=== PATIENT | female | born 1975 | race Caucasian/White ===

== ENCOUNTER 2017-11-06 12:27 | Inpatient (IN) | payer OTHER ==
[~2017-11-06] VITALS: Ht 157.5 cm; Wt 93.0 kg
[2017-11-06 13:12] LABS: ABSOLUTE BASOPHIL COUNT 0.1 /CUMM (0.0-0.2); ABSOLUTE EOSINOPHIL COUNT 0.2 /CUMM (0.0-0.7); ABSOLUTE LYMPH COUNT 3.3 /CUMM (1.2-3.4); ABSOLUTE MONOCYTE COUNT 0.8 /CUMM (0.10-0.60); BASOPHIL % 0.7 % (0.0-2.0); EOSINOPHIL % 1.2 % (0-5); GRANULOCYTE % 78.1 % (42.2-75.2); HEMATOCRIT 39.6 % (37-47); MEAN CORPUSCULAR HGB 28.9 PG (27.0-31.0); MEAN CORPUSCULAR HGB CONC 33.7 G/DL (33.0-37.0); MEAN CORPUSCULAR VOLUME 85.8 FL (81.0-99.0); PLATELET COUNT 468 /CUMM (130-400); RBC DISTRIBUTION WIDTH 13.2 % (11.5-14.5); RED BLOOD CELL CT 4.62 /CUMM (4.20-5.40); WHITE BLOOD CELL COUNT 20.5 /CUMM (4.8-10.8)
--- NOTE | 2017-11-06 13:48 | ED GI/GU/ABDOMINAL COMPLAINT ---
History of Present Illness General Chief Complaint: Female Urogenital Problems Stated Complaint: ABD PAIN ? UTI Source: patient Exam Limitations: no limitations Vital Signs & Intake/Output Vital Signs & Intake/Output Vital Signs Date Time Temp Pulse Resp B/P B/P Pulse O2 O2 Flow FiO2 Mean Ox Delivery Rate 11/06 1703 Room Air 11/06 1234 98.0 115 18 135/93 99 Room Air Allergies Coded Allergies: Penicillins (Severe, HIVES 11/06/17) Sulfa (Sulfonamide Antibiotics) (Severe, HIVES 11/06/17) codeine (Severe, DIZZINESS 11/06/17) red dye (Mild, ITCHING 11/06/17) Reconcile Medications No Known Home Medications Triage Note: PT TO ED FOR BILATERAL FLANK PAIN RADIATING INTO HER LOWER ABD SINCE MONDAY, WAS SEEN AT [facility] WHO PRESCRIBED CIPRO AND PYRIDIUM, PT REPORTING SHE HAS BEEN TAKING BOTH WITH MINIMAL RELIEF. Triage Nurses Notes Reviewed? yes ? N Is pt currently ? No Onset: Gradual Duration: getting worse Timing: recent history Quality/Severity: moderate Severity Numbers: 5 Radiation: no radiation HPI: Patient is a 41-year-old female with a unremarkable past medical history presents emergency room and which 8 days ago patient was seen and evaluated at a urgent care facility and was diagnosed with positional vertigo patient was administered meclizine however 3 days ago last Monday patient began having abdominal pain and left-sided back pain and upon urination patient states that she had worsening abdominal pain where she was prescribed ciprofloxacin and Pyridium were patient states that her symptoms of pain feel no better. Patient's last bowel movement was 2 days ago patient is decreased appetite however can't tolerate Patient does state that the onset of her pain on Monday she had 3 episodes a day of nonbloody nonbilious emesis. Denies any fevers chills chest pain shortness of breath presently bleeding or discharge or current dysuria hematuria (Claudio Larson) Past History Travel History Traveled to [place] past 21 day No Medical History Any Pertinent Medical History? 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 No (Claudio Larson) Review of Systems Review of Systems Constitutional: Reports: no symptoms. EENTM: Reports: no symptoms. Respiratory: Reports: no symptoms. Cardiovascular: Reports: no symptoms. GI: Reports: see HPI. Genitourinary: Reports: see HPI. Musculoskeletal: Reports: no symptoms. Skin: Reports: no symptoms. Neurological/Psychological: Reports: no symptoms. Hematologic/Endocrine: Reports: no symptoms. Immunologic/Allergic: Reports: no symptoms. All Other Systems: Reviewed and Negative (Claudio Larson) Physical Exam Physical Exam General Appearance: no apparent distress, alert, obese Head: atraumatic Eyes: Bilateral: normal appearance. Ears, Nose, Throat, Mouth: moist mucous membrane Neck: normal inspection Respiratory: normal breath sounds Cardiovascular: tachycardia Peripheral Pulses: 2+ radial (R) Gastrointestinal: normal bowel sounds, soft, tenderness Extremities: normal range of motion Skin: intact, normal color, warm/dry Core Measures ACS in differential dx? No Sepsis Present: No Sepsis Focused Exam Completed? No (Claudio Larson) Progress Differential Diagnosis: AAA, AMI, appendicitis, biliary colic, bowel obstruction , colon cancer, cholecystitis, diverticulitis, ectopic , endometritis, esophageal varices, gastritis, hepatitis, hernia, hemorrhoids, ischemic bowel, inflamm bowel dis, intrauterine , kidney stone, Promise-Apryl tear, ovarian cyst, ovarian torsion, pancreatitis, PID/cervicitis, peptic ulcer, PUD/ GERD, perforated viscous, SBO, threatened AB, UTI/pyelo Plan of Care: Orders Procedure Date/time Status Nothing by Mouth 11/07 B Active CBC WITHOUT DIFFERENTIAL 11/07 0600 Active BASIC ELECTROLYTES PLUS BUN&CR 11/07 0600 Active LACTIC ACID 11/06 1820 Active Pathway - chart 11/06 1707 Active Code Status 11/06 1707 Active Patient Data 11/06 1635 Active EKG 11/06 1523 Active Add-on Test (ER Only) 11/06 1520 Active BLOOD CULTURE 11/06 1520 Active PARTIAL THROMBOPLASTIN TIME 11/06 1520 Complete PROTHROMBIN TIME 11/06 1520 Complete LACTIC ACID 11/06 1520 Complete TYPE & SCREEN (NOT X-MATCH) 11/06 1520 Active Add-on Test (ER Only) 11/06 1348 Active DIRECT BILIRUBIN 11/06 1301 Complete CULTURE,URINE 11/06 1252 Active URINE 11/06 1240 Complete URINALYSIS 11/06 1240 Complete COMPREHENSIVE METABOLIC PANEL 11/06 1240 Complete CBC WITHOUT DIFFERENTIAL 11/[address] in observation 11/06 UNK Active VTE Mechanical Prophylaxis 11/06 UNK Active Vital Signs 11/06 UNK Active Intake & Output 11/06 UNK Active Activity/Ambulation 11/06 UNK Active Current Medications Sig/Rafal Start time Last Medication Dose Stop Time Status Admin Ceftriaxone Sodium 1,000 MG DAILY 11/07 1000 UNVr (Rocephin) Metronidazole 500 MG IQ8 11/07 0000 UNVr (Flagyl) N/A 1 UNIT (No Carrier) Heparin Sodium 5,000 UNIT Q8 11/06 2200 UNVr (Porcine) Acetaminophen 1,000 MG Q6P PRN 11/06 1715 UNVr (Ofirmev) N/A 1 UNIT (No Carrier) Dextrose/Lactated 1,000 ML Q8H 11/06 1715 UNVr Ringer's (D5W in Lactated Ringers) Morphine Sulfate 2 MG Q3P PRN 11/06 1715 UNVr (Morphine) Morphine Sulfate 4 MG Q3P PRN 11/06 1715 UNVr (Morphine) Ondansetron HCl 4 MG Q6-PRN PRN 11/06 171 UNVr (Zofran) Laboratory Tests 11/06/17 1634: Lactic Acid 1.3, PT 14.0 H, INR 1.34 H, APTT 41 H 11/06/17 1301: Anion Gap 18 H, Estimated GFR > 60, BUN/Creatinine Ratio 20.0, Glucose 129 H, Calcium 9.3, Total Bilirubin 0.5, Direct Bilirubin 0.3, AST 37 H, ALT 47, Alkaline Phosphatase 107, Total Protein 8.6 H, Albumin 4.7, Globulin 3.9, Albumin/Globulin Ratio 1.2, CBC w Diff MAN DIFF ORDERED, RBC 4.62, MCV 85.8, MCH 28.9, RDW 13.2, MPV 7.0 L, Gran % 78.1 H, Lymphocytes % 15.9 L, Monocytes % 4.1, Eosinophils % 1.2, Basophils % 0.7, Absolute Granulocytes 16.0 H, Absolute Lymphocytes 3.3, Absolute Monocytes 0.8 H, Absolute Eosinophils 0.2, Absolute Basophils 0.1, Platelet Estimate VERIFIED BY SMEAR, Normocytic RBCs VERIFIED, Normochromic RBCs VERIFIED, PUBS MCHC 33.7 11/06/17 1252: Urine Color ORANG H, Urine Clarity CLEAR, Urine pH 5.5, Ur Specific [place] >= 1.030, Urine Protein 30 H, Urine Ketones TRACE H, Urine Nitrite POS H, Urine Bilirubin NEG@ICTO, Urine Urobilinogen 2.0 H, Ur Leukocyte Esterase TRACE H, Ur Microscopic SEDIMENT EXAMINED, Urine WBC 3-5 H, Ur Epithelial Cells MANY H, Urine Bacteria FEW H, Urine Mucus RARE, Urine Hemoglobin NEG, Urine Glucose NEG , Urine Test NEGATIVE Microbiology 11/06 1634 BLOOD: Blood Culture - RECD 11/06 1615 BLOOD: Blood Culture - RECD 11/06 1252 URINE ROUT: Urine Culture - RECD Patient had initial examination was resting currently at bedside patient was offered pain medication and requested ibuprofen IV Toradol was administered. [place] doesn't indicated leukocytosis at 20,000 CT scan was resulted in which I discussed with radiologist Dr. LANGSTON or of concerns of perforated sigmoid diverticulitis with free air discussed results with patient IV morphine was administered surgery was paged 1522 Discussed patient with Sonny Mccann MD advised patient to be placed under his service discussed surgical PA admission Diagnostic Imaging: Viewed by Me: CT Scan. Discussed w/RAD: CT Scan. Radiology Impression: acute abnormality Initial ED EK BPM, SINUS TACHYCARDIA Comments: PATIENT: BORA DE LA PAZ PRESENT AGE: 41 PATIENT ACCOUNT NO: [id number] : 74 LOCATION: [facility] ORDERING PHYSICIAN: Claudio JOHNSON SERVICE DATE: 11/06/17 EXAM TYPE: CAT - CT ABD & PELVIS W IV CONTRAST EXAMINATION: CT ABDOMEN AND PELVIS WITH CONTRAST CLINICAL INFORMATION: 41-year-old female with right lower quadrant and left costovertebral angle pain. COMPARISON: None TECHNIQUE: Multidetector volumetric imaging was performed of the abdomen and pelvis following IV administration of 95 mL of Optiray 320 intravenous contrast. Sagittal and coronal reformatted images were obtained on the technologist's workstation. 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 Obese body habitus. LUNG BASES: Unremarkable. LIVER, GALLBLADDER, AND BILIARY TREE: There is hepatomegaly and diffuse hepatic steatosis with a region of relative sparing around the gallbladder fossa. No evidence of focal liver lesion. Gallbladder is physiologically distended and without radiopaque calculi or wall edema. No intrahepatic or extrahepatic bile duct dilatation. PANCREAS: Unremarkable. SPLEEN: The normal spleen measures up to 12.7 cm maximum dimension. No focal splenic lesion. ADRENAL GLANDS: Normal. KIDNEYS AND URETERS: Kidneys are normal in size and enhance symmetrically. No renal mass, nephrolithiasis, hydroureteronephrosis or perinephric edema. BLADDER: Unremarkable. GASTROINTESTINAL TRACT: Loops of bowel are normal in caliber. Appendix is normal. There are diverticula of the sigmoid colon. There are two small bubbles of gas in the sigmoid mesocolon that appear to be extraluminal and likely reflect microperforation of sigmoid diverticulitis. There is circumferential wall thickening of the noted sigmoid colon. No rim-enhancing collection in this region. There is reticulation/inflammation of the fat around the sigmoid colon. ABDOMINAL WALL: Minimal protrusion of fat into the umbilicus. LYMPH NODES: No pathologic sized lymph nodes in the abdomen or pelvis. VASCULAR: Unremarkable. PELVIC VISCERA: Intrauterine contraceptive device is in its expected position. The anteflexed uterus is normal in size. No evidence of uterine or adnexal mass. A trace amount of free fluid is present within the pelvic cul-de-sac. OSSEOUS STRUCTURES: L5-S1 degenerative disc space narrowing and osteophyte formation. No suspicious osseous lesions. IMPRESSION: 1. Findings are consistent with a contained perforation of sigmoid colon diverticulitis without abscess. 2. Obesity, diffuse hepatic steatosis and hepatosplenomegaly. The acute test result was discussed with Claudio Santos of the ER at 3:20 pm on 11/06/2017 and it was ascertained that the content and the importance of the findings was understood at the time of the direct communication. (Tom JOHNSON,Claudio) Radiology Impression: acute abnormality (Mihir BENDER,Kadeem) Departure Departure Disposition: STILL A PATIENT Condition: Guarded Referrals: Patient Has No Primary Care Dr (PCP/Family) Departure Forms: Customer Survey General Discharge Information Prescriptions: Current Visit Scripts No Known Home Medications Admission Note Spoke With: Siobhan BENDER,Sonny Aviles. Documentation of Exam: Documentation of any treatments & extenuating circumstances including Concerns Regarding Discharge (functional status, medication knowledge or non-compliance, living conditions, etc.) that warrant an admission rather than observation: Patient requires IV pain management, IV antibiotics possible surgical intervention and surgery consultation, outpatient treatment due to critical findings of diverticulitis with perforation or free air would be medically harmful (Claudio Larson) Departure Clinical Impression Primary Impression: Diverticulitis of intestine with perforation 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 I have also reviewed all the pertinent lab results and diagnostic results. I agree with the findings and the plan of care as documented in the PA's/LICENSED RETAIL SUPERVISOR's documentation. Flank pain with leukocytosis diverticulitis with micro perforation. Sx to hospitalize. [] I have reviewed the ED Record and agree with the PA's/LICENSED RETAIL SUPERVISOR's documentation. [] Additions or exceptions (if any) to the PAs/LICENSED RETAIL SUPERVISOR's note and plan are summarized below: [] (Mihir BENDER,Kadeem) Critical Care Note Critical Care Note Critical Care Time: 30-74 min (Claudio Larson)
--- NOTE | 2017-11-06 15:27 | CT SCAN REPORT ---
EXAMINATION: CT ABDOMEN AND PELVIS WITH CONTRAST CLINICAL INFORMATION: 41-year-old female with right lower quadrant and left costovertebral angle pain. COMPARISON: None TECHNIQUE: Multidetector volumetric imaging was performed of the abdomen and pelvis following IV administration of 95 mL of Optiray 320 intravenous contrast. Sagittal and coronal reformatted images were obtained on the technologist's workstation. 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 Obese body habitus. LUNG BASES: Unremarkable. LIVER, GALLBLADDER, AND BILIARY TREE: There is hepatomegaly and diffuse hepatic steatosis with a region of relative sparing around the gallbladder fossa. No evidence of focal liver lesion. Gallbladder is physiologically distended and without radiopaque calculi or wall edema. No intrahepatic or extrahepatic bile duct dilatation. PANCREAS: Unremarkable. SPLEEN: The normal spleen measures up to 12.7 cm maximum dimension. No focal splenic lesion. ADRENAL GLANDS: Normal. KIDNEYS AND URETERS: Kidneys are normal in size and enhance symmetrically. No renal mass, nephrolithiasis, hydroureteronephrosis or perinephric edema. BLADDER: Unremarkable. GASTROINTESTINAL TRACT: Loops of bowel are normal in caliber. Appendix is normal. There are diverticula of the sigmoid colon. There are two small bubbles of gas in the sigmoid mesocolon that appear to be extraluminal and likely reflect microperforation of sigmoid diverticulitis. There is circumferential wall thickening of the noted sigmoid colon. No rim-enhancing collection in this region. There is reticulation/inflammation of the fat around the sigmoid colon. ABDOMINAL WALL: Minimal protrusion of fat into the umbilicus. LYMPH NODES: No pathologic sized lymph nodes in the abdomen or pelvis. VASCULAR: Unremarkable. PELVIC VISCERA: Intrauterine contraceptive device is in its expected position. The anteflexed uterus is normal in size. No evidence of uterine or adnexal mass. A trace amount of free fluid is present within the pelvic cul-de-sac. OSSEOUS STRUCTURES: L5-S1 degenerative disc space narrowing and osteophyte formation. No suspicious osseous lesions. IMPRESSION: 1. Findings are consistent with a contained perforation of sigmoid colon diverticulitis without abscess. 2. Obesity, diffuse hepatic steatosis and hepatosplenomegaly. The acute test result was discussed with Claudio Santos of the ER at 3:20 pm on 11/06/2017 and it was ascertained that the content and the importance of the findings was understood at the time of the direct communication.
--- NOTE | 2017-11-06 16:34 | Admission Core Measures ---
Acute Coronary Syndrome (CM) ACS Core Measures Acute Coronary Syndrome Diagnosis No Congestive Heart Failure (NEW) CHF Core Measures Congestive Heart Failure Diagnosis No Cerebrovascular Accident (NEW) CVA Core Measures CVA/TIA Diagnosis No Venous Thromboembolism VTE Core Angelica (View Protocol) VTE Risk Factors Acute Medical Illness No Mechanical VTE Prophylaxis d/t N/A MechProphylax Ordered No VTE Pharm Prophylaxis d/t NA PharmProphylax ordered Problem List As ranked by this Provider includes Assessment & Plan 1. Diverticulitis of intestine with perforation
[2017-11-06 17:04] LABS: PTT 41 SEC (25-37)
--- NOTE | 2017-11-06 18:44 | History & Physical Pre-Op ---
General Information and HPI History of Present Illness: CC: abdominal pain HPI: 41-year-old nondiabetic nonsmoker no medications started having some lower abdominal pain 3 days ago radiating to her back bilaterally she went to a walk- in who treated her for a urinary tract infection but the pain persisted more in the left lower quadrant so she came here. This was not preceded by any unusual meal or straining. Denies fevers she had some vomiting initially, she is hungry , she normally doesn't move her bowels every day this episode was not preceded by any changes in her bowel movements but in retrospect, for years, she gets cramps with certain foods like nuts and seeds and popcorn, but this was the worst episode, and her grandmother gets episodes of diverticulitis. Otherwise no changes bowel habits, weight or appetite. I've reviewed the [facility]. No history of GERD, PUD, bleeding problems, heart disease or issues with anesthesia. 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 Surgical History Pertinent Surgical History: non-contributory Past Family/Social History Psychosocial History ETOH Use: occasional use Illicit Drug Use: denies illicit drug use Review of Systems Review of Systems: Constitutional: No fever, sweats or weight loss ENMT: No sore throat Cardiovascular: No chest pain, palpitations or leg swelling Respiratory: No shortness of breath, cough, or sputum or dyspnea on exertion GI: No GERD or bleeding per rectum : No dysuria or hematuria Musculoskeletal: No new muscle weakness, bone or joint pain Skin / Breast: No jaundice, rashes or itching Psychiatric: No history of drug or alcohol abuse no depression or anxiety Hematologic / lymphatic system: No problems with excessive bleeding, bruising, or blood clots Exam & Diagnostic Data Last 24 Hrs of Vital Signs/I&O I reviewed Vital Signs Date Time Temp Pulse Resp B/P B/P Pulse O2 O2 Flow FiO2 Mean Ox Delivery Rate 11/06 1703 Room Air 11/06 1234 98.0 115 18 135/93 99 Room Air I reviewed Intake & Output 11/06 1600 11/06 0800 11/06 0000 Intake Total Output Total Balance Patient 205 lb Weight Weight Reported by Patient Measurement Method Physical Exam: Constitutional: pleasant, no acute distress, conversant Eyes: sclera anicteric ENMT: ears and nose atraumatic, moist mucous membranes, good dentition, no lip lesions Neck: Supple, trachea is midline, no cervical or supraclavicular adenopathy and no palpable thyromegaly Cardiovascular: S1, S2, no murmurs, no peripheral edema Respiratory: clear to auscultation with normal respiratory effort and no intercostal retractions GI: abdomen soft, focal left lower quadrant tenderness no rebound, nondistended, no palpable hepatosplenomegaly Extremities / lymphatics: symmetrically warm, free range of motion no peripheral edema, no cervical, supraclavicular, axillary, or inguinal adenopathy Musculoskeletal: Did not evaluate gait and station, no digital cyanosis, good muscle strength and tone no atrophy, motor grossly 5 out of 5 throughout Skin: no jaundice, no rashes warm, nondiaphoretic, no areas of erythema or induration Psychiatric: mood and affect are appropriate and alert and oriented to person place and time Last 24 Hrs of Labs/Ector: I reviewed Laboratory Tests 11/06/17 1634: Lactic Acid 1.3, PT 14.0 H, INR 1.34 H, APTT 41 H 11/06/17 1301: Anion Gap 18 H, Estimated GFR > 60, BUN/Creatinine Ratio 20.0, Glucose 129 H, Calcium 9.3, Total Bilirubin 0.5, Direct Bilirubin 0.3, AST 37 H, ALT 47, Alkaline Phosphatase 107, Total Protein 8.6 H, Albumin 4.7, Globulin 3.9, Albumin/Globulin Ratio 1.2, CBC w Diff MAN DIFF ORDERED, RBC 4.62, MCV 85.8, MCH 28.9, RDW 13.2, MPV 7.0 L, Gran % 78.1 H, Lymphocytes % 15.9 L, Monocytes % 4.1, Eosinophils % 1.2, Basophils % 0.7, Absolute Granulocytes 16.0 H, Absolute Lymphocytes 3.3, Absolute Monocytes 0.8 H, Absolute Eosinophils 0.2, Absolute Basophils 0.1, Platelet Estimate VERIFIED BY SMEAR, Normocytic RBCs VERIFIED, Normochromic RBCs VERIFIED, PUBS MCHC 33.7 11/06/17 1252: Urine Color ORANG H, Urine Clarity CLEAR, Urine pH 5.5, Ur Specific [place] >= 1.030, Urine Protein 30 H, Urine Ketones TRACE H, Urine Nitrite POS H, Urine Bilirubin NEG@ICTO, Urine Urobilinogen 2.0 H, Ur Leukocyte Esterase TRACE H, Ur Microscopic SEDIMENT EXAMINED, Urine WBC 3-5 H, Ur Epithelial Cells MANY H, Urine Bacteria FEW H, Urine Mucus RARE, Urine Hemoglobin NEG, Urine Glucose NEG , Urine Test NEGATIVE Microbiology 11/06 1634 BLOOD: Blood Culture - RECD 11/06 1615 BLOOD: Blood Culture - RECD 11/06 1252 URINE ROUT: Urine Culture - RECD I reviewed today's CT scan on PACS myself and shows an obviously thickened sigmoid colon with surrounding mesenteric inflammation and a few dots of gas, there is minimal free fluid Assessment/Plan Assessment/Plan: Sigmoid diverticulitis no free perforation I explained the spectrum of disease to her and why I feel she should be admitted to the surgical service because sometimes the tiny perforation contained by the mesentery acutely enlarges and causes peritonitis requiring emergency resection and colostomy to avoid life- threatening sepsis. Usually in someone with her degree of inflammation, the process starts to heal with a bowel rest and IV antibiotics alone and hopefully she will not develop a pericolic abscess which would require percutaneous drainage but in any case treatment is stepwise, once her pain improves we can try to advance her diet but then have to make sure that when she regains bowel function that it doesn't worsen with po or after a bowel movement so these conditions are usually not met within 2 days. As Ranked By This Provider Problem List: 1. Diverticulitis of intestine with perforation
[2017-11-06 21:05] VITALS: BP 118/70
[2017-11-07 06:18] VITALS: BP 118/60
[2017-11-07 09:02] LABS: ABSOLUTE BASOPHIL COUNT 0 /CUMM (0.0-0.2); ABSOLUTE LYMPH COUNT 2.6 /CUMM (1.2-3.4); ABSOLUTE MONOCYTE COUNT 0.6 /CUMM (0.10-0.60); MEAN CORPUSCULAR HGB 28.9 PG (27.0-31.0); MEAN PLATELET VOLUME 7.1 FL (7.4-10.4); PLATELET COUNT 356 /CUMM (130-400); RBC DISTRIBUTION WIDTH 13.1 % (11.5-14.5); RED BLOOD CELL CT 3.75 /CUMM (4.20-5.40)
[2017-11-07 09:35] LABS: ABSOLUTE EOSINOPHIL COUNT 0.4 /CUMM (0.0-0.7); ABSOLUTE GRANULOCYTE CT 8.7 /CUMM (1.4-6.5); BASOPHIL % 0.4 % (0.0-2.0); EOSINOPHIL % 2.9 % (0-5); GRANULOCYTE % 70.6 % (42.2-75.2); MEAN CORPUSCULAR HGB CONC 33.7 G/DL (33.0-37.0); MEAN CORPUSCULAR VOLUME 85.8 FL (81.0-99.0); WHITE BLOOD CELL COUNT 12.3 /CUMM (4.8-10.8)
[2017-11-07 09:51] LABS: HEMATOCRIT 32.1 % (37-47)
--- NOTE | 2017-11-07 11:06 | PN- General Surgery ---
Subjective Subjective: Patient c/o left lower quadrant pain this morning, which has improved compared to yesterday. She also reports nausea and dysuria. She has only ambulated out of bed to void. She reports passing flatus, denies any BMs. She offers no other complaints. Objective Vital Signs and I&Os Vital Signs Date Time Temp Pulse Resp B/P B/P Pulse O2 O2 Flow FiO2 Mean Ox Delivery Rate 11/07 617 97.7 69 18 118/60 95 Room Air 11/06 2105 99.3 114 20 118/70 94 Room Air 11/06 2009 99.4 105 19 118/60 95 Room Air 11/06 1703 Room Air 11/06 1234 98.0 115 18 135/93 99 Room Air Intake & Output 11/07 1600 11/07 0800 11/07 0000 11/06 1600 11/06 0800 11/06 0000 Intake Total 970 365 Output Total 100 Balance -100 970 365 Intake, IV 850 125 Intake, Oral 120 240 Output, Urine 100 Patient 205 lb 205 lb Weight Weight Reported by Patient Measurement Method Physical Exam: Gen - resting in a chair awake and alert in NAD accompained by her family Cardiac - S1S2 noted, RRR Lungs - CTAB Abd - Soft, obese, nondistended with absent bowel sounds, tender to light palpation in the LLQ with voluntary guarding, no rebound noted Ext - alps in place, no edema or calf tenderness B/L Current Medications: Current Medications Sig/Rafal Start time Last Medication Dose Route Stop Time Status Admin Acetaminophen 1,000 MG Q6P PRN 11/06 1715 AC 11/07 N/A 1 UNIT IV 0527 Ceftriaxone Sodium 1,000 MG DAILY 11/07 1000 AC 11/07 IV 0834 Ceftriaxone Sodium 0 .STK-MED ONE 11/06 1701 DC .ROUTE Ceftriaxone Sodium 1,000 MG ONCE ONE 11/06 1530 DC 11/06 IV 11/06 1531 1702 Dextrose/Lactated 1,000 ML Q8H 11/06 1715 AC 11/07 Ringer's IV 0527 Heparin Sodium 5,000 UNIT Q8 11/06 2200 AC 11/07 (Porcine) SC 0527 Ketorolac 0 .STK-MED ONE 11/06 1405 DC Tromethamine .ROUTE Ketorolac 30 MG ONCE ONE 11/06 1400 DC 11/06 Tromethamine IV 11/06 1401 1409 Metronidazole 500 MG IQ8 11/07 0000 AC 11/07 N/A 1 UNIT IV 0833 Metronidazole 500 MG ONCE ONE 11/06 1530 DC 11/06 N/A 1 UNIT IV 11/06 1629 1702 Morphine Sulfate 2 MG Q3P PRN 11/06 171 AC IV Morphine Sulfate 4 MG Q3P PRN 11/06 1715 AC IV Morphine Sulfate 0 .STK-MED ONE 11/06 1701 DC .ROUTE Morphine Sulfate 2 MG ONCE ONE 11/06 1530 DC 11/06 IV 11/06 1531 1702 Ondansetron HCl 4 MG Q6-PRN PRN 11/06 1715 AC 11/06 IV 2138 Sodium Chloride 1,000 ML BOLUS ONE 11/06 1400 DC 11/06 IV 11/06 1459 1409 Results Last 48 Hours of Labs: Laboratory Tests 11/07 11/06 11/06 0800 1827 1634 Chemistry Sodium (137 - 145 mmol/L) 141 Potassium (3.5 - 5.1 mmol/L) 4.0 Chloride (98 - 107 mmol/L) 103 Carbon Dioxide (22 - 30 mmol/L) 26 Anion Gap (5 - 16) 12 BUN (7 - 17 mg/dL) 12 Creatinine (0.5 - 1.0 mg/dL) 0.4 L Estimated GFR (>60 ml/min) > 60 BUN/Creatinine Ratio (7 - 25 %) 30.0 H Lactic Acid (0.7 - 2.1 mmol/L) 0.9 1.3 Coagulation PT (9.4 - 12.5 SEC) 14.0 H INR (0.90 - 1.19) 1.34 H APTT (25 - 37 SEC) 41 H Hematology CBC w Diff NO MAN DIFF REQ WBC (4.8 - 10.8 /CUMM) 12.3 H RBC (4.20 - 5.40 /CUMM) 3.75 L Hgb (12.0 - 16.0 G/DL) 10.8 L Hct (37 - 47 %) 32.1 L MCV (81.0 - 99.0 FL) 85.8 MCH (27.0 - 31.0 PG) 28.9 RDW (11.5 - 14.5 %) 13.1 Plt Count (130 - 400 /CUMM) 356 MPV (7.4 - 10.4 FL) 7.1 L Gran % (42.2 - 75.2 %) 70.6 Lymphocytes % (20.5 - 51.1 %) 21.4 Monocytes % (1.7 - 9.3 %) 4.7 Eosinophils % (0 - 5 %) 2.9 Basophils % (0.0 - 2.0 %) 0.4 Absolute Granulocytes (1.4 - 6.5 /CUMM) 8.7 H Absolute Lymphocytes (1.2 - 3.4 /CUMM) 2.6 Absolute Monocytes (0.10 - 0.60 /CUMM) 0.6 Absolute Eosinophils (0.0 - 0.7 /CUMM) 0.4 Absolute Basophils (0.0 - 0.2 /CUMM) 0 PUBS MCHC (33.0 - 37.0 G/DL) 33.7 11/06 1301 Chemistry Sodium (137 - 145 mmol/L) 145 Potassium (3.5 - 5.1 mmol/L) 4.0 Chloride (98 - 107 mmol/L) 102 Carbon Dioxide (22 - 30 mmol/L) 25 Anion Gap (5 - 16) 18 H BUN (7 - 17 mg/dL) 12 Creatinine (0.5 - 1.0 mg/dL) 0.6 Estimated GFR (>60 ml/min) > 60 BUN/Creatinine Ratio (7 - 25 %) 20.0 Glucose (65 - 99 mg/dL) 129 H Calcium (8.4 - 10.2 mg/dL) 9.3 Total Bilirubin (0.2 - 1.3 mg/dL) 0.5 Direct Bilirubin (< 0.4 mg/dL) 0.3 AST (14 - 36 U/L) 37 H ALT (9 - 52 U/L) 47 Alkaline Phosphatase (<127 U/L) 107 Total Protein (6.3 - 8.2 g/dL) 8.6 H Albumin (3.5 - 5.0 g/dL) 4.7 Globulin (1.9 - 4.2 gm/dL) 3.9 Albumin/Globulin Ratio (1.1 - 2.2 %) 1.2 Hematology CBC w Diff MAN DIFF ORDERED WBC (4.8 - 10.8 /CUMM) 20.5 H RBC (4.20 - 5.40 /CUMM) 4.62 Hgb (12.0 - 16.0 G/DL) 13.4 Hct (37 - 47 %) 39.6 MCV (81.0 - 99.0 FL) 85.8 MCH (27.0 - 31.0 PG) 28.9 RDW (11.5 - 14.5 %) 13.2 Plt Count (130 - 400 /CUMM) 468 H MPV (7.4 - 10.4 FL) 7.0 L Gran % (42.2 - 75.2 %) 78.1 H Lymphocytes % (20.5 - 51.1 %) 15.9 L Monocytes % (1.7 - 9.3 %) 4.1 Eosinophils % (0 - 5 %) 1.2 Basophils % (0.0 - 2.0 %) 0.7 Absolute Granulocytes (1.4 - 6.5 /CUMM) 16.0 H Absolute Lymphocytes (1.2 - 3.4 /CUMM) 3.3 Absolute Monocytes (0.10 - 0.60 /CUMM) 0.8 H Absolute Eosinophils (0.0 - 0.7 /CUMM) 0.2 Absolute Basophils (0.0 - 0.2 /CUMM) 0.1 Platelet Estimate (ADEQUATE) VERIFIED BY SMEAR Normocytic RBCs VERIFIED Normochromic RBCs VERIFIED PUBS MCHC (33.0 - 37.0 G/DL) 33.7 11/06 1252 Urines Urine Color (YEL,AMB,STR) ORANG H Urine Clarity (CLEAR) CLEAR Urine pH (5.0 - 8.0) 5.5 Ur Specific [place] (1.001 - 1.035) >= 1.030 Urine Protein (NEG,<30 MG/DL) 30 H Urine Ketones (NEG) TRACE H Urine Nitrite (NEG) POS H Urine Bilirubin (NEG) NEG@ICTO Urine Urobilinogen (0.1 - 1.0 EU/dl) 2.0 H Ur Leukocyte Esterase (NEG) TRACE H Ur Microscopic SEDIMENT EXAMINED Urine WBC (0 - 2 /HPF) 3-5 H Ur Epithelial Cells (NONE,FEW) MANY H Urine Bacteria (NEG/NONE) FEW H Urine Mucus (FEW,NONE) RARE Urine Hemoglobin (NEG) NEG Urine Glucose (N MG/DL) NEG Urine Test NEGATIVE Assessment/Plan Assessment/Plan 41 F admitted with acute sigmoid diverticulitits with microperforation, strip machine tender on exam, leukocytosis improving Cont conservative management Cont bowel rest, IVF Cont IV rocephin/flagyl Cont IV analgesics/antiemetics prn DVT ppx on board - hsq Encourage ambulation May require surgical intervention during this admission if no improvement with conservative measures F/u urine cx Will d/w Dr. Mccann Core Measures Venous Thromboembolism VTE Risk Factors Acute Medical Illness No Mechanical VTE Prophylaxis d/t N/A MechProphylax Ordered No VTE Pharm Prophylaxis d/t NA PharmProphylax ordered
--- NOTE | 2017-11-07 11:47 | PN- General Surgery ---
Subjective Subjective: Follow-up of acute sigmoid diverticulitis overnight she's passed gas she has a little dysuria still no bowel movement no nausea and the pain persists she just recently got some analgesics, she is hungry no fevers no sweats Objective Vital Signs and I&Os I reviewed Vital Signs Date Time Temp Pulse Resp B/P B/P Pulse O2 O2 Flow FiO2 Mean Ox Delivery Rate 11/07 0618 97.7 69 18 118/60 95 Room Air 11/06 2105 99.3 114 20 118/70 94 Room Air 11/06 2009 99.4 105 19 118/60 95 Room Air 11/06 1703 Room Air 11/06 1234 98.0 115 18 135/93 99 Room Air I reviewed Intake & Output 11/07 1600 11/07 0800 11/07 0000 11/06 1600 11/06 0800 11/06 0000 Intake Total 970 365 Output Total 100 Balance -100 970 365 Intake, IV 850 125 Intake, Oral 120 240 Output, Urine 100 Patient 205 lb 205 lb Weight Weight Reported by Patient Measurement Method Physical Exam: Constitutional: no acute distress no pain Eyes: sclera anicteric ENMT: moist mucous membranes Cardiovascular: S1-S2 no murmurs no peripheral edema Respiratory: clear to auscultation with normal respiratory effort and no intercostal retractions GI: abdomen soft nontender nondistended Extremities / lymphatics: free range of motion no peripheral edema Skin: no jaundice no rashes warm, nondiaphoretic Psychiatric: mood and affect are appropriate and alert and oriented to person place and time Current Medications: I reviewed Current Medications Sig/Rafal Start time Last Medication Dose Route Stop Time Status Admin Acetaminophen 1,000 MG Q6P PRN 11/06 1715 AC 11/07 N/A 1 UNIT IV 0527 Ceftriaxone Sodium 1,000 MG DAILY 11/07 1000 AC 11/07 IV 0834 Ceftriaxone Sodium 0 .STK-MED ONE 11/06 1701 DC .ROUTE Ceftriaxone Sodium 1,000 MG ONCE ONE 11/06 1530 DC 11/06 IV 11/06 1531 1702 Dextrose/Lactated 1,000 ML Q8H 11/06 1715 AC 11/07 Ringer's IV 0527 Heparin Sodium 5,000 UNIT Q8 11/06 2200 AC 11/07 (Porcine) SC 0527 Ketorolac 0 .STK-MED ONE 11/06 1405 DC Tromethamine .ROUTE Ketorolac 30 MG ONCE ONE 11/06 1400 DC 11/06 Tromethamine IV 11/06 1401 1409 Metronidazole 500 MG IQ8 11/07 0000 AC 11/07 N/A 1 UNIT IV 0833 Metronidazole 500 MG ONCE ONE 11/06 1530 DC 11/06 N/A 1 UNIT IV 11/06 1629 1702 Morphine Sulfate 2 MG Q3P PRN 11/06 1715 AC IV Morphine Sulfate 4 MG Q3P PRN 11/06 1715 AC IV Morphine Sulfate 0 .STK-MED ONE 11/06 1701 DC .ROUTE Morphine Sulfate 2 MG ONCE ONE 11/06 1530 DC 11/06 IV 11/06 1531 1702 Ondansetron HCl 4 MG Q6-PRN PRN 11/06 1715 AC 11/07 IV 1110 Sodium Chloride 1,000 ML BOLUS ONE 11/06 1400 DC 11/06 IV 11/06 1459 1409 Results Last 48 Hours of Labs: I reviewed Laboratory Tests 11/07 11/06 11/06 0800 1827 1634 Chemistry Sodium (137 - 145 mmol/L) 141 Potassium (3.5 - 5.1 mmol/L) 4.0 Chloride (98 - 107 mmol/L) 103 Carbon Dioxide (22 - 30 mmol/L) 26 Anion Gap (5 - 16) 12 BUN (7 - 17 mg/dL) 12 Creatinine (0.5 - 1.0 mg/dL) 0.4 L Estimated GFR (>60 ml/min) > 60 BUN/Creatinine Ratio (7 - 25 %) 30.0 H Lactic Acid (0.7 - 2.1 mmol/L) 0.9 1.3 Coagulation PT (9.4 - 12.5 SEC) 14.0 H INR (0.90 - 1.19) 1.34 H APTT (25 - 37 SEC) 41 H Hematology CBC w Diff NO MAN DIFF REQ WBC (4.8 - 10.8 /CUMM) 12.3 H RBC (4.20 - 5.40 /CUMM) 3.75 L Hgb (12.0 - 16.0 G/DL) 10.8 L Hct (37 - 47 %) 32.1 L MCV (81.0 - 99.0 FL) 85.8 MCH (27.0 - 31.0 PG) 28.9 RDW (11.5 - 14.5 %) 13.1 Plt Count (130 - 400 /CUMM) 356 MPV (7.4 - 10.4 FL) 7.1 L Gran % (42.2 - 75.2 %) 70.6 Lymphocytes % (20.5 - 51.1 %) 21.4 Monocytes % (1.7 - 9.3 %) 4.7 Eosinophils % (0 - 5 %) 2.9 Basophils % (0.0 - 2.0 %) 0.4 Absolute Granulocytes (1.4 - 6.5 /CUMM) 8.7 H Absolute Lymphocytes (1.2 - 3.4 /CUMM) 2.6 Absolute Monocytes (0.10 - 0.60 /CUMM) 0.6 Absolute Eosinophils (0.0 - 0.7 /CUMM) 0.4 Absolute Basophils (0.0 - 0.2 /CUMM) 0 PUBS MCHC (33.0 - 37.0 G/DL) 33.7 11/06 1301 Chemistry Sodium (137 - 145 mmol/L) 145 Potassium (3.5 - 5.1 mmol/L) 4.0 Chloride (98 - 107 mmol/L) 102 Carbon Dioxide (22 - 30 mmol/L) 25 Anion Gap (5 - 16) 18 H BUN (7 - 17 mg/dL) 12 Creatinine (0.5 - 1.0 mg/dL) 0.6 Estimated GFR (>60 ml/min) > 60 BUN/Creatinine Ratio (7 - 25 %) 20.0 Glucose (65 - 99 mg/dL) 129 H Calcium (8.4 - 10.2 mg/dL) 9.3 Total Bilirubin (0.2 - 1.3 mg/dL) 0.5 Direct Bilirubin (< 0.4 mg/dL) 0.3 AST (14 - 36 U/L) 37 H ALT (9 - 52 U/L) 47 Alkaline Phosphatase (<127 U/L) 107 Total Protein (6.3 - 8.2 g/dL) 8.6 H Albumin (3.5 - 5.0 g/dL) 4.7 Globulin (1.9 - 4.2 gm/dL) 3.9 Albumin/Globulin Ratio (1.1 - 2.2 %) 1.2 Hematology CBC w Diff MAN DIFF ORDERED WBC (4.8 - 10.8 /CUMM) 20.5 H RBC (4.20 - 5.40 /CUMM) 4.62 Hgb (12.0 - 16.0 G/DL) 13.4 Hct (37 - 47 %) 39.6 MCV (81.0 - 99.0 FL) 85.8 MCH (27.0 - 31.0 PG) 28.9 RDW (11.5 - 14.5 %) 13.2 Plt Count (130 - 400 /CUMM) 468 H MPV (7.4 - 10.4 FL) 7.0 L Gran % (42.2 - 75.2 %) 78.1 H Lymphocytes % (20.5 - 51.1 %) 15.9 L Monocytes % (1.7 - 9.3 %) 4.1 Eosinophils % (0 - 5 %) 1.2 Basophils % (0.0 - 2.0 %) 0.7 Absolute Granulocytes (1.4 - 6.5 /CUMM) 16.0 H Absolute Lymphocytes (1.2 - 3.4 /CUMM) 3.3 Absolute Monocytes (0.10 - 0.60 /CUMM) 0.8 H Absolute Eosinophils (0.0 - 0.7 /CUMM) 0.2 Absolute Basophils (0.0 - 0.2 /CUMM) 0.1 Platelet Estimate (ADEQUATE) VERIFIED BY SMEAR Normocytic RBCs VERIFIED Normochromic RBCs VERIFIED PUBS MCHC (33.0 - 37.0 G/DL) 33.7 11/06 1252 Urines Urine Color (YEL,AMB,STR) ORANG H Urine Clarity (CLEAR) CLEAR Urine pH (5.0 - 8.0) 5.5 Ur Specific [place] (1.001 - 1.035) >= 1.030 Urine Protein (NEG,<30 MG/DL) 30 H Urine Ketones (NEG) TRACE H Urine Nitrite (NEG) POS H Urine Bilirubin (NEG) NEG@ICTO Urine Urobilinogen (0.1 - 1.0 EU/dl) 2.0 H Ur Leukocyte Esterase (NEG) TRACE H Ur Microscopic SEDIMENT EXAMINED Urine WBC (0 - 2 /HPF) 3-5 H Ur Epithelial Cells (NONE,FEW) MANY H Urine Bacteria (NEG/NONE) FEW H Urine Mucus (FEW,NONE) RARE Urine Hemoglobin (NEG) NEG Urine Glucose (N MG/DL) NEG Urine Test NEGATIVE Assessment/Plan Assessment/Plan Acute diverticulitis with significantly inflamed mesentery and some dysuria on IV antibiotics bowel rest since admission yesterday overall she's not worse but not significantly better to the point of trying some diet but will reevaluate later today to try to advance Problem List: 1. Diverticulitis of intestine with perforation Core Measures Venous Thromboembolism VTE Risk Factors Acute Medical Illness No Mechanical VTE Prophylaxis d/t N/A MechProphylax Ordered No VTE Pharm Prophylaxis d/t NA PharmProphylax ordered
[2017-11-07 14:19] VITALS: BP 110/60
[2017-11-07 21:58] VITALS: BP 128/78
[2017-11-08 05:59] VITALS: BP 120/80
--- NOTE | 2017-11-08 07:52 | PN- General Surgery ---
Subjective Subjective: Patient reports nausea which is improved with phenergan. Denies vomiting. Reports have a small quarter sized bowel movement this morning and continues to complain of LLQ pain. Offer no other complaints Objective Vital Signs and I&Os Vital Signs Date Time Temp Pulse Resp B/P B/P Pulse O2 O2 Flow FiO2 Mean Ox Delivery Rate 11/08 0559 98.4 73 20 120/80 94 Room Air 11/07 2158 98.1 66 18 128/78 94 Room Air 11/07 1419 99.6 67 18 110/60 96 Intake & Output 11/08 0800 11/08 0000 11/07 1600 11/07 0800 11/07 0000 11/06 1600 Intake Total 1000 1360 800 970 365 Output Total 1000 600 300 Balance 0 760 500 970 365 Intake, IV 1000 1000 800 850 125 Intake, Oral 360 120 240 Output, Urine 1000 600 300 Patient 205 lb 205 lb 205 lb Weight Weight Reported by Patient Measurement Method Physical Exam: Gen - awake an alert appears drowsy in NAD Cardiac - S1S2 noted, RRR Lungs - CTAB Abd - soft, obese, hypoactive bowel sounds, tender to palpation in LLQ, improved compared to yesterday, no rebound or guarding noted Ext - alps in place, no edema or calf tenderness Current Medications: Current Medications Sig/Rafal Start time Last Medication Dose Route Stop Time Status Admin Acetaminophen 1,000 MG .STK-MED ONE 11/07 2158 DC IV 11/07 220 Acetaminophen 1,000 MG Q6P PRN 11/06 1714 AC 11/08 N/A 1 UNIT IV 0415 Ceftriaxone Sodium 1,000 MG DAILY 11/07 1000 AC 11/07 IV 0834 Dextrose/Lactated 1,000 ML Q8H 11/06 171 AC 11/08 Ringer's IV 0116 Heparin Sodium 5,000 UNIT Q8 11/06 2200 AC 11/07 (Porcine) SC 2042 Metronidazole 500 MG IQ8 11/07 0000 11/07 N/A 1 UNIT IV 2303 Morphine Sulfate 2 MG Q3P PRN 11/06 1714 AC IV Morphine Sulfate 4 MG Q3P PRN 11/06 1714 AC IV Ondansetron HCl 4 MG Q6-PRN PRN 11/06 1715 AC 11/07 IV 1743 Pantoprazole Sodium 40 MG DAILY@0600 11/08 0600 AC 11/08 IV 0520 Promethazine HCl 12.5 MG ONCE ONE 11/07 184 DC 11/07 IV 11/07 1846 1855 Promethazine HCl 12.5 MG Q4 HRS NEEDED PRN 11/07 1430 AC 11/08 IV 11/14 1429 0431 Results Last 48 Hours of Labs: Laboratory Tests 11/07 11/06 11/06 0800 1827 1634 Chemistry Sodium (137 - 145 mmol/L) 141 Potassium (3.5 - 5.1 mmol/L) 4.0 Chloride (98 - 107 mmol/L) 103 Carbon Dioxide (22 - 30 mmol/L) 26 Anion Gap (5 - 16) 12 BUN (7 - 17 mg/dL) 12 Creatinine (0.5 - 1.0 mg/dL) 0.4 L Estimated GFR (>60 ml/min) > 60 BUN/Creatinine Ratio (7 - 25 %) 30.0 H Lactic Acid (0.7 - 2.1 mmol/L) 0.9 1.3 Coagulation PT (9.4 - 12.5 SEC) 14.0 H INR (0.90 - 1.19) 1.34 H APTT (25 - 37 SEC) 41 H Hematology CBC w Diff NO MAN DIFF REQ WBC (4.8 - 10.8 /CUMM) 12.3 H RBC (4.20 - 5.40 /CUMM) 3.75 L Hgb (12.0 - 16.0 G/DL) 10.8 L Hct (37 - 47 %) 32.1 L MCV (81.0 - 99.0 FL) 85.8 MCH (27.0 - 31.0 PG) 28.9 RDW (11.5 - 14.5 %) 13.1 Plt Count (130 - 400 /CUMM) 356 MPV (7.4 - 10.4 FL) 7.1 L Gran % (42.2 - 75.2 %) 70.6 Lymphocytes % (20.5 - 51.1 %) 21.4 Monocytes % (1.7 - 9.3 %) 4.7 Eosinophils % (0 - 5 %) 2.9 Basophils % (0.0 - 2.0 %) 0.4 Absolute Granulocytes (1.4 - 6.5 /CUMM) 8.7 H Absolute Lymphocytes (1.2 - 3.4 /CUMM) 2.6 Absolute Monocytes (0.10 - 0.60 /CUMM) 0.6 Absolute Eosinophils (0.0 - 0.7 /CUMM) 0.4 Absolute Basophils (0.0 - 0.2 /CUMM) 0 PUBS MCHC (33.0 - 37.0 G/DL) 33.7 11/06 1301 Chemistry Sodium (137 - 145 mmol/L) 145 Potassium (3.5 - 5.1 mmol/L) 4.0 Chloride (98 - 107 mmol/L) 102 Carbon Dioxide (22 - 30 mmol/L) 25 Anion Gap (5 - 16) 18 H BUN (7 - 17 mg/dL) 12 Creatinine (0.5 - 1.0 mg/dL) 0.6 Estimated GFR (>60 ml/min) > 60 BUN/Creatinine Ratio (7 - 25 %) 20.0 Glucose (65 - 99 mg/dL) 129 H Calcium (8.4 - 10.2 mg/dL) 9.3 Total Bilirubin (0.2 - 1.3 mg/dL) 0.5 Direct Bilirubin (< 0.4 mg/dL) 0.3 AST (14 - 36 U/L) 37 H ALT (9 - 52 U/L) 47 Alkaline Phosphatase (<127 U/L) 107 Total Protein (6.3 - 8.2 g/dL) 8.6 H Albumin (3.5 - 5.0 g/dL) 4.7 Globulin (1.9 - 4.2 gm/dL) 3.9 Albumin/Globulin Ratio (1.1 - 2.2 %) 1.2 Hematology CBC w Diff MAN DIFF ORDERED WBC (4.8 - 10.8 /CUMM) 20.5 H RBC (4.20 - 5.40 /CUMM) 4.62 Hgb (12.0 - 16.0 G/DL) 13.4 Hct (37 - 47 %) 39.6 MCV (81.0 - 99.0 FL) 85.8 MCH (27.0 - 31.0 PG) 28.9 RDW (11.5 - 14.5 %) 13.2 Plt Count (130 - 400 /CUMM) 468 H MPV (7.4 - 10.4 FL) 7.0 L Gran % (42.2 - 75.2 %) 78.1 H Lymphocytes % (20.5 - 51.1 %) 15.9 L Monocytes % (1.7 - 9.3 %) 4.1 Eosinophils % (0 - 5 %) 1.2 Basophils % (0.0 - 2.0 %) 0.7 Absolute Granulocytes (1.4 - 6.5 /CUMM) 16.0 H Absolute Lymphocytes (1.2 - 3.4 /CUMM) 3.3 Absolute Monocytes (0.10 - 0.60 /CUMM) 0.8 H Absolute Eosinophils (0.0 - 0.7 /CUMM) 0.2 Absolute Basophils (0.0 - 0.2 /CUMM) 0.1 Platelet Estimate (ADEQUATE) VERIFIED BY SMEAR Normocytic RBCs VERIFIED Normochromic RBCs VERIFIED PUBS MCHC (33.0 - 37.0 G/DL) 33.7 11/06 1252 Urines Urine Color (YEL,AMB,STR) ORANG H Urine Clarity (CLEAR) CLEAR Urine pH (5.0 - 8.0) 5.5 Ur Specific [place] (1.001 - 1.035) >= 1.030 Urine Protein (NEG,<30 MG/DL) 30 H Urine Ketones (NEG) TRACE H Urine Nitrite (NEG) POS H Urine Bilirubin (NEG) NEG@ICTO Urine Urobilinogen (0.1 - 1.0 EU/dl) 2.0 H Ur Leukocyte Esterase (NEG) TRACE H Ur Microscopic SEDIMENT EXAMINED Urine WBC (0 - 2 /HPF) 3-5 H Ur Epithelial Cells (NONE,FEW) MANY H Urine Bacteria (NEG/NONE) FEW H Urine Mucus (FEW,NONE) RARE Urine Hemoglobin (NEG) NEG Urine Glucose (N MG/DL) NEG Urine Test NEGATIVE Assessment/Plan Assessment/Plan This is a 41 year-old female with a history of vertigo, reflux disease and recent UTI admitted with acute sigmoid diverticulitits with microperforation with nausea and return of bowel function, pain persists, but is improved on exam Cont conservative management Cont bowel rest, IVF Consider diet advancement if nausea resolves Cont IV rocephin/flagyl Cont IV analgesics/antiemetics prn DVT ppx on board - hsq GI ppx on board Encourage ambulation F/u labs, urine cx Will d/w Dr. Mccann Core Measures Venous Thromboembolism VTE Risk Factors Acute Medical Illness No Mechanical VTE Prophylaxis d/t N/A MechProphylax Ordered No VTE Pharm Prophylaxis d/t NA PharmProphylax ordered
[2017-11-08 08:59] LABS: ABSOLUTE BASOPHIL COUNT 0 /CUMM (0.0-0.2); ABSOLUTE EOSINOPHIL COUNT 0.3 /CUMM (0.0-0.7); ABSOLUTE GRANULOCYTE CT 7.8 /CUMM (1.4-6.5); ABSOLUTE LYMPH COUNT 2.2 /CUMM (1.2-3.4); ABSOLUTE MONOCYTE COUNT 0.5 /CUMM (0.10-0.60); BASOPHIL % 0.4 % (0.0-2.0); EOSINOPHIL % 2.6 % (0-5); GRANULOCYTE % 72.1 % (42.2-75.2); HEMATOCRIT 33.8 % (37-47); MEAN CORPUSCULAR HGB 27.9 PG (27.0-31.0); MEAN CORPUSCULAR HGB CONC 32.1 G/DL (33.0-37.0); MEAN PLATELET VOLUME 7.1 FL (7.4-10.4); PLATELET COUNT 368 /CUMM (130-400); RBC DISTRIBUTION WIDTH 12.6 % (11.5-14.5); RED BLOOD CELL CT 3.89 /CUMM (4.20-5.40); WHITE BLOOD CELL COUNT 10.8 /CUMM (4.8-10.8)
[2017-11-08 14:35] VITALS: BP 120/82
--- NOTE | 2017-11-08 18:32 | PN- General Surgery ---
Subjective Subjective: follow-up of diverticulitis had some more nausea overnight and dry heaves, abd pain sl better, had small BM, no significant increased pain after. No sweats SOB Objective Vital Signs and I&Os I rev Vital Signs Date Time Temp Pulse Resp B/P B/P Pulse O2 O2 Flow FiO2 Mean Ox Delivery Rate 11/08 1435 98.1 78 18 120/82 99 11/08 0559 98.4 73 20 120/80 94 Room Air 11/07 2158 98.1 66 18 128/78 94 Room Air I rev Intake & Output 11/08 1600 11/08 0800 11/08 0000 11/07 1600 11/07 0800 11/07 0000 Intake Total 1025 1000 1360 800 970 365 Output Total 1500 1000 600 300 Balance -475 0 760 500 970 365 Intake, IV 1025 1000 1000 800 850 125 Intake, Oral 360 120 240 Number 1 Bowel Movements Output, Urine 1500 1000 600 300 Patient 205 lb 205 lb Weight Physical Exam: Constitutional: no acute distress no pain Eyes: sclera anicteric ENMT: moist mucous membranes Cardiovascular: S1-S2 no murmurs no peripheral edema Respiratory: clear to auscultation with normal respiratory effort and no intercostal retractions GI: abdomen soft nondistended, less tender LLQ Extremities / lymphatics: free range of motion no peripheral edema Skin: no jaundice no rashes warm, nondiaphoretic Psychiatric: mood and affect are appropriate and alert and oriented to person place and time Current Medications: I rev Current Medications Sig/Rafal Start time Last Medication Dose Route Stop Time Status Admin Acetaminophen 1,000 MG .STK-MED ONE 11/08 0412 DC IV 11/08 0413 Acetaminophen 1,000 MG .STK-MED ONE 11/07 2159 DC IV 11/07 2200 Acetaminophen 1,000 MG Q6P PRN 11/06 1715 AC 11/08 N/A 1 UNIT IV 1303 Ceftriaxone Sodium 1,000 MG DAILY 11/07 1000 AC 11/08 IV 1010 Dextrose/Lactated 1,000 ML Q8H 11/06 171 AC 11/08 Ringer's IV 1303 Heparin Sodium 5,000 UNIT Q8 11/06 2200 AC 11/08 (Porcine) SC 1422 Metronidazole 500 MG IQ8 11/07 0000 AC 11/08 N/A 1 UNIT IV 1700 Morphine Sulfate 2 MG Q3P PRN 11/06 171 AC IV Morphine Sulfate 4 MG Q3P PRN 11/06 171 AC IV Ondansetron HCl 4 MG Q6-PRN PRN 11/06 171 AC 11/07 IV 1743 Pantoprazole Sodium 40 MG DAILY@0600 11/08 0600 AC 11/08 IV 0520 Promethazine HCl 12.5 MG ONCE ONE 11/07 1845 DC 11/07 IV 11/07 1846 1855 Promethazine HCl 12.5 MG Q4 HRS NEEDED PRN 11/07 1430 AC 11/08 IV 11/14 1429 1037 Results Last 48 Hours of Labs: I rev Laboratory Tests 11/08 11/07 0806 0800 Chemistry Sodium (137 - 145 mmol/L) 142 141 Potassium (3.5 - 5.1 mmol/L) 4.2 4.0 Chloride (98 - 107 mmol/L) 103 103 Carbon Dioxide (22 - 30 mmol/L) 25 26 Anion Gap (5 - 16) 14 12 BUN (7 - 17 mg/dL) 7 12 Creatinine (0.5 - 1.0 mg/dL) 0.5 0.4 L Estimated GFR (>60 ml/min) > 60 > 60 BUN/Creatinine Ratio (7 - 25 %) 14.0 30.0 H Phosphorus (2.5 - 4.5 mg/dL) 3.6 Magnesium (1.6 - 2.3 mg/dL) 1.8 Hematology CBC w Diff NO MAN DIFF REQ NO MAN DIFF REQ WBC (4.8 - 10.8 /CUMM) 10.8 12.3 H RBC (4.20 - 5.40 /CUMM) 3.89 L 3.75 L Hgb (12.0 - 16.0 G/DL) 10.9 L 10.8 L Hct (37 - 47 %) 33.8 L 32.1 L MCV (81.0 - 99.0 FL) 87.0 85.8 MCH (27.0 - 31.0 PG) 27.9 28.9 RDW (11.5 - 14.5 %) 12.6 13.1 Plt Count (130 - 400 /CUMM) 368 356 MPV (7.4 - 10.4 FL) 7.1 L 7.1 L Gran % (42.2 - 75.2 %) 72.1 70.6 Lymphocytes % (20.5 - 51.1 %) 20.4 L 21.4 Monocytes % (1.7 - 9.3 %) 4.5 4.7 Eosinophils % (0 - 5 %) 2.6 2.9 Basophils % (0.0 - 2.0 %) 0.4 0.4 Absolute Granulocytes (1.4 - 6.5 /CUMM) 7.8 H 8.7 H Absolute Lymphocytes (1.2 - 3.4 /CUMM) 2.2 2.6 Absolute Monocytes (0.10 - 0.60 /CUMM) 0.5 0.6 Absolute Eosinophils (0.0 - 0.7 /CUMM) 0.3 0.4 Absolute Basophils (0.0 - 0.2 /CUMM) 0 0 PUBS MCHC (33.0 - 37.0 G/DL) 32.1 L 33.7 Assessment/Plan Assessment/Plan White blood cell count trending towards normal despite objective numbers improving she doesn't seem ready for oral intake but will try some clear liquids later this morning and see how she does, the nausea is unusual. Problem List: 1. Diverticulitis of intestine with perforation Core Measures Venous Thromboembolism VTE Risk Factors Acute Medical Illness No Mechanical VTE Prophylaxis d/t N/A MechProphylax Ordered No VTE Pharm Prophylaxis d/t NA PharmProphylax ordered
[2017-11-08 22:17] VITALS: BP 118/80
[2017-11-09 06:47] VITALS: BP 118/82
--- NOTE | 2017-11-09 09:01 | PN- General Surgery ---
See Addendum Subjective Subjective: Pt. reports cramping with BM, had one BM " hard ball " this morning.Passing very small flatus. She also reports nausea intermittently not related to morphine. She reports that overall abdominal pain is getting better. Objective Vital Signs and I&Os Vital Signs Date Time Temp Pulse Resp B/P B/P Pulse O2 O2 Flow FiO2 Mean Ox Delivery Rate 11/09 0647 97.6 60 20 118/82 98 Room Air 11/08 2217 98.3 73 20 118/80 96 11/08 1435 98.1 78 18 120/82 99 Intake & Output 11/09 1600 11/09 0800 11/09 0000 11/08 1600 11/08 0800 11/08 0000 Intake Total 875 1025 1000 1360 Output Total 600 1500 1000 600 Balance 875 -600 -475 0 760 Intake, IV 875 1025 1000 1000 Intake, Oral 360 Number 0 1 Bowel Movements Output, Urine 600 1500 1000 600 Patient 205 lb Weight Alert, appropriate, no distress. Lungs clear Herat regular Abdomen is soft, obese. Mild to moderate tenderness on palpation in LLQ. No peritoneal signs, no guarding. Extr. without edema. Assessment/Plan Assessment/Plan Simoid diverticulitis with microperforation , first bout , HD#3 Treated conservatively with bowel rest, abx ( Rocephin and Flagyl) and IVF Although her LLQ pain sems to be improving since admission, she still have cramping with BM and intermittent nausea. I explained to her to limit clears if nausea present.She denies worsening pain with sips of clears. Pain controlled with non narcotics. No leukocytosis on CBC yesterday. Would continue current conservative management and await advancing diet till pain resolved. Hope to avoid surgical intervention with Roger procedure. Will discuss with team and surgeon. Core Measures Venous Thromboembolism VTE Risk Factors Acute Medical Illness No Mechanical VTE Prophylaxis d/t N/A MechProphylax Ordered No VTE Pharm Prophylaxis d/t NA PharmProphylax ordered
[2017-11-09 15:15] VITALS: BP 110/60
[2017-11-09 22:41] VITALS: BP 144/92
[2017-11-10 06:50] VITALS: BP 126/80
--- NOTE | 2017-11-10 07:32 | PN- General Surgery ---
See Addendum Subjective Subjective: Patient resting in bed. States her pain is much improved from yesterday morning. No N/V, F/C, CP/SOB. Having BMs. Passing flatus. Objective Vital Signs and I&Os Vital Signs Date Time Temp Pulse Resp B/P B/P Pulse O2 O2 Flow FiO2 Mean Ox Delivery Rate 11/10 0650 97.9 60 20 126/80 98 Room Air 11/09 2241 98.3 72 20 144/92 100 Room Air Intake & Output 11/10 1600 11/10 0800 11/10 0000 11/09 1600 11/09 0800 11/09 0000 Intake Total 805 1000 1450 1500 875 Output Total 300 209 572 0997 600 Balance 505 550 550 500 875 -600 Intake, IV 325 1000 1000 1000 875 Intake, Oral 480 0 450 500 Number 2 0 2 0 Bowel Movements Output, Urine 300 145 925 8815 600 Patient 205 lb Weight Physical Exam: Gen: AAOx3 in NAD Cor: S1+s2+ Lungs: CTA sheree Abd: soft, NT, ND, +BS x4 ext: no edema or calf tenderness to sheree lower extremities. Current Medications: Current Medications Sig/Rafal Start time Last Medication Dose Route Stop Time Status Admin Acetaminophen 1,000 MG Q6P PRN 11/06 1715 AC 11/10 N/A 1 UNIT IV 1015 Ceftriaxone Sodium 1,000 MG DAILY 11/07 1000 AC 11/10 IV 0924 Dextrose/Lactated 1,000 ML Q8H 11/06 1715 DC 11/10 Ringer's IV 0924 Heparin Sodium 5,000 UNIT Q8 11/06 2200 AC 11/08 (Porcine) SC 2049 Metronidazole 500 MG IQ8 11/07 0000 AC 11/10 N/A 1 UNIT IV 1603 Morphine Sulfate 2 MG Q3P PRN 11/06 171 AC IV Morphine Sulfate 4 MG Q3P PRN 11/06 171 AC IV Ondansetron HCl 4 MG Q6-PRN PRN 11/06 1715 AC 11/07 IV 1743 Pantoprazole Sodium 40 MG DAILY@0600 11/08 0600 AC 11/10 IV 0550 Promethazine HCl 12.5 MG Q4 HRS NEEDED PRN 11/07 1430 AC 11/09 IV 11/14 1429 2124 Results Last 48 Hours of Labs: Laboratory Tests 11/10 0836 Chemistry Sodium (137 - 145 mmol/L) 143 Potassium (3.5 - 5.1 mmol/L) 4.1 Chloride (98 - 107 mmol/L) 103 Carbon Dioxide (22 - 30 mmol/L) 25 Anion Gap (5 - 16) 15 BUN (7 - 17 mg/dL) 3 L Creatinine (0.5 - 1.0 mg/dL) 0.5 Estimated GFR (>60 ml/min) > 60 BUN/Creatinine Ratio (7 - 25 %) 6.0 L Hematology CBC w Diff NO MAN DIFF REQ WBC (4.8 - 10.8 /CUMM) 12.6 H RBC (4.20 - 5.40 /CUMM) 4.16 L Hgb (12.0 - 16.0 G/DL) 12.0 Hct (37 - 47 %) 35.6 L MCV (81.0 - 99.0 FL) 85.6 MCH (27.0 - 31.0 PG) 28.8 MCHC (33.0 - 37.0 G/DL) 33.6 RDW (11.5 - 14.5 %) 12.4 Plt Count (130 - 400 /CUMM) 429 H MPV (7.4 - 10.4 FL) 7.2 L Gran % (42.2 - 75.2 %) 74.9 Lymphocytes % (20.5 - 51.1 %) 18.1 L Monocytes % (1.7 - 9.3 %) 4.6 Eosinophils % (0 - 5 %) 2.2 Basophils % (0.0 - 2.0 %) 0.2 Absolute Granulocytes (1.4 - 6.5 /CUMM) 9.5 H Absolute Lymphocytes (1.2 - 3.4 /CUMM) 2.3 Absolute Monocytes (0.10 - 0.60 /CUMM) 0.6 Absolute Eosinophils (0.0 - 0.7 /CUMM) 0.3 Absolute Basophils (0.0 - 0.2 /CUMM) 0 Assessment/Plan Assessment/Plan A: microperf sigmoid diverticulitis; AVSS Plan: LRD D/C in am if tolerating diet. OOB and ambulate TID today. Core Measures Venous Thromboembolism VTE Risk Factors Acute Medical Illness No Mechanical VTE Prophylaxis d/t N/A MechProphylax Ordered No VTE Pharm Prophylaxis d/t NA PharmProphylax ordered
[2017-11-10 09:26] LABS: ABSOLUTE BASOPHIL COUNT 0 /CUMM (0.0-0.2); ABSOLUTE EOSINOPHIL COUNT 0.3 /CUMM (0.0-0.7); ABSOLUTE GRANULOCYTE CT 9.5 /CUMM (1.4-6.5); ABSOLUTE LYMPH COUNT 2.3 /CUMM (1.2-3.4); ABSOLUTE MONOCYTE COUNT 0.6 /CUMM (0.10-0.60); BASOPHIL % 0.2 % (0.0-2.0); EOSINOPHIL % 2.2 % (0-5); GRANULOCYTE % 74.9 % (42.2-75.2); HEMATOCRIT 35.6 % (37-47); MEAN CORPUSCULAR HGB 28.8 PG (27.0-31.0); MEAN CORPUSCULAR HGB CONC 33.6 G/DL (33.0-37.0); MEAN CORPUSCULAR VOLUME 85.6 FL (81.0-99.0); MEAN PLATELET VOLUME 7.2 FL (7.4-10.4); PLATELET COUNT 429 /CUMM (130-400); RBC DISTRIBUTION WIDTH 12.4 % (11.5-14.5); RED BLOOD CELL CT 4.16 /CUMM (4.20-5.40); WHITE BLOOD CELL COUNT 12.6 /CUMM (4.8-10.8)
--- NOTE | 2017-11-10 21:03 | Patient Discharge Instructions ---
Discharge Instructions General Discharge Information You were seen/treated for: acute microperforated sigmoid diverticulitis You had these procedures: none Watch for these problems: worsening pain,fever>101, inability to tolerate food/drink, increased abdominal bloating, inability to move bowels/pass gas Special Instructions: Please go to the lab on Monday11/13/17 to have your blood drawn to check CBC. Diet Recommended Diet: Low Residue Activity Activity Self Limited: Yes Acute Coronary Syndrome Inclusion Criteria At DC or during hospital stay patient has or had the following: ACS DIAGNOSIS No Discharge Core Measures Meds if any: Prescribed or Continued at Discharge Meds if any: NOT Prescribed or Continued at Discharge Congestive Heart Failure Inclusion Criteria At DC or during hospital stay patient has or had the following: CHF DIAGNOSIS No Discharge Core Measures Meds if any: Prescribed or Continued at Discharge Meds if any: NOT Prescribed or Continued at Discharge Cerebrovascular accident Inclusion Criteria At DC or during hospital stay patient has or had the following: CVA/TIA Diagnosis No Discharge Core Measures Meds if any: Prescribed or Continued at Discharge Meds if any: NOT Prescribed or Continued at Discharge Venous thromboembolism Inclusion Criteria VTE Diagnosis No VTE Type NONE VTE Confirmed by (Test) NONE Discharge Core Measures - Per Current guidelines, there needs to be overlap - treatment for the first 5 days of Warfarin therapy. - If discharged on Warfarin prior to 5 days of - overlap therapy, the patient will need to be - assessed for post discharge needs including - *Post discharge parental anticoagulation - *Warfarin and/or parental anticoagulation education - *Follow up date to check INR post discharge At least 5 days overlap therapy as Inpatient No Meds if any: Prescribed or Continued at Discharge Note: Overlap Therapy is Warfarin and Anticoagulant Meds if any: NOT Prescribed or Continued at Discharge
[2017-11-10 22:39] VITALS: BP 114/80
[2017-11-11 06:49] VITALS: BP 116/80
[2017-11-11 10:03] LABS: ABSOLUTE BASOPHIL COUNT 0.1 /CUMM (0.0-0.2); ABSOLUTE EOSINOPHIL COUNT 0.4 /CUMM (0.0-0.7); ABSOLUTE GRANULOCYTE CT 10.8 /CUMM (1.4-6.5); ABSOLUTE LYMPH COUNT 2.4 /CUMM (1.2-3.4); ABSOLUTE MONOCYTE COUNT 0.5 /CUMM (0.10-0.60); BASOPHIL % 0.5 % (0.0-2.0); EOSINOPHIL % 2.9 % (0-5); GRANULOCYTE % 76.2 % (42.2-75.2); HEMATOCRIT 35.9 % (37-47); MEAN CORPUSCULAR HGB CONC 33.5 G/DL (33.0-37.0); MEAN CORPUSCULAR VOLUME 86.7 FL (81.0-99.0); MEAN PLATELET VOLUME 7.2 FL (7.4-10.4); PLATELET COUNT 408 /CUMM (130-400); RBC DISTRIBUTION WIDTH 13.1 % (11.5-14.5); RED BLOOD CELL CT 4.15 /CUMM (4.20-5.40); WHITE BLOOD CELL COUNT 14.1 /CUMM (4.8-10.8)
[2017-11-11] MEDS ORDERED: CIPROFLOXACIN750 M1 PO (13:24)
[2017-11-11] MEDS ORDERED: FLAGYL500 MG PO (13:24)
[2017-11-11 14:32] VITALS: BP 120/80
--- NOTE | 2017-11-11 15:30 | Discharge Summary ---
Visit Information Visit Dates Admission Date: 11/07/17 Discharge Date: 11/11/17 Hospital Course Course Attending Physician: Sonny Mccann MD Primary Care Physician: Patient Has No Primary Care Dr Hospital Course: Patient was admitted with acute sigmoid diverticulitis was not a mild case she needed to be admitted for bowel rest IV antibiotics she had no fever but it took several days for pain to improve she also had intermittent nausea and her discomfort was related to bowel movements which eventually improved, today her white blood cell count has gone up from 12-14 and she's having a few episodes of loose bowel movements but overall her pain is still consistently better she's tolerating regular food no fevers no sweats we discussed that this disease can smolder that she can probably go home monitor herself have a CBC checked the next 2 days or so but she stated no if her symptoms worsen or recur she has to promptly contact us or go back to the ER because she is at risk for developing a pericolic abscess which may need percutaneous drainage on the other hand historically she has had elevations in her white blood cell count and platelets before, not for this. We did discuss diet and avoid large portions of high fiber food try to focus on having a normal soft regular bowel movements without straining Allergies: Coded Allergies: Penicillins (Severe, HIVES 11/06/17) Sulfa (Sulfonamide Antibiotics) (Severe, HIVES 11/06/17) codeine (Severe, DIZZINESS 11/06/17) red dye (Mild, ITCHING 11/06/17) Disposition Summary Disposition Principal Diagnosis: Acute sigmoid diverticulitis Additional Diagnosis: None acute Discharge Disposition: home or self care Discharge Instructions General Discharge Information Code Status: Full Code Patient's Diet: Discussed above Patient's Activity: Also discussed above avoid straining or heavy lifting Follow-Up Instructions/Appts: Next week in the office or sooner as mentioned above Medications at Discharge Discharge Medications: Start taking the following new medications: Metronidazole (Flagyl) 500 MG TABLET 1 Tablet ORAL TWICE DAILY Qty = 20 No Refills Comments: Last Taken: 11/11/17 Time: 0900 AM Ciprofloxacin HCl (Ciprofloxacin HCl) 750 MG TABLET 1 Tablet ORAL TWICE DAILY Days = 10 No Refills Comments: NOT TAKEN IN HOSPITAL Copies To: Sonny Mccann MD
== END 2017-11-11 14:39 | DRG 392 ==
LOC: ERH 12:27 → ERHI 16:35 → 2NA 16:35 → ENRESERV 19:22 → ENTRNSPT 20:41 → EDTRNSPTSTS 20:44 → 2NA 21:01 → CMPTRNSPT 21:12 → 2NA 11-07 15:40 → DELTRNSPT 11-11 14:22 → 2NA 11-11 14:39
PROVIDERS: Nurse Practitioner; Physician Assistant; Physician Assistant Medical; Physician Assistant Surgical
DX: K57.20 Diverticulitis of large intestine with perforation and abscess without bleeding (principal); D72.829 Elevated white blood cell count, unspecified; R11.0 Nausea; R30.0 Dysuria; Z88.5 Allergy status to narcotic agent; Z88.0 Allergy status to penicillin; Z88.2 Allergy status to sulfonamides; Z91.02 Food additives allergy status; K21.9 Gastro-esophageal reflux disease without esophagitis
CPT/HCPCS: 2NAP; 36415; 74177; 81001; 81025; 82436; 87040; 87086; 93005; 93010; 96374; 99291; J0131; J0696; J1644; J1885; J2405; J2550